=== PATIENT | male | born 1960 | race Caucasian/White ===

== ENCOUNTER 2021-01-25 13:16 | Emergency (ER) | payer OTHER ==
[~2021-01-25] VITALS: Ht 185.4 cm; Wt 92.5 kg
[2021-01-25] MEDS ORDERED: OXYC5 PO (14:10)
[2021-01-26] MEDS ORDERED: OXYC5 PO (15:53)
== END 2021-01-25 14:29 | disposition home or self-care (01) ==
LOC: ER 13:16
DX: S05.01XA Injury of conjunctiva and corneal abrasion without foreign body, right eye, initial encounter (principal); X58.XXXA Exposure to other specified factors, initial encounter
CPT/HCPCS: 99283; A9270